=== PATIENT | male | born 1970 | race Caucasian/White ===

== ENCOUNTER 2020-05-08 09:51 | Outpatient (CLI) | payer MEDICARE, SELFPAY ==
--- NOTE | 2020-05-08 09:56 | CT_ITS ---
WS: [id number] Examination: CT of the chest abdomen and pelvis Rectal carcinoma restaging Technique Omnipaque 300 95 mL. FINDINGS: The thyroid gland was normal bilaterally. No supraclavicular lymphadenopathy or axillary ly mphadenopathy is seen. Left side again shows a 4 mm lingula lesion this is not changed since earlier exams. The calcified azygos node is again seen. The aorta was normal. The heart chambers show no abnormalities. Perfusion changes in both lung zee were normal. There was no evidence of mediastinal masses or lymphadenopathy. CT of the abdomen pelvis show normal appearance of the liver. No infiltrating changes. The gallbladder is normal. The spleen was normal as well as the pancreas head, body, tail the stomach showed no abnormalities. Both adrenal glands were normal. Both kidneys show normal size there is slight irregularity of the borders but no definite masses were seen. The ureters were also found to be normal. The large bowel showed fecal stasis. The aorta inferior vena cava were normal The small bowel showed no unusual configuration. The descending colon was normal. There is evidence of isolated diverticulosis in the sigmoid colon. The rectum shows no recurrent tumors. The prostate was of normal size and The hip joints appear to be normal bilaterally in the pelvis was normal. The lumbar spine showed no gross metastatic or destructive changes. CT/CT chest abd pel w con* Impression: The chest shows no evidence of progression of disease or metastatic changes. The abdomen pelvis show no progression of disease and no evidence of recurrent neoplasm is seen.
[2020-05-08 10:15] LABS: Basophils # 0.1 10^3/uL (0.0-0.1); Basophils % 0.9 %; Eosinophils # 0.3 10^3/uL (0.0-0.8); Eosinophils % 3.2 %; Hematocrit 44.5 % (42.0-52.0); Hemoglobin 14.9 g/dL (11.7-16.6); Lymphocytes # 1.7 10^3/uL (0.8-4.8); Lymphocytes % 19.7 %; Mean Corpuscular HGB Conc 33.5 g/dL (30.0-36.0); Mean Corpuscular Hemoglobin 29.8 pg (28.0-34.0); Mean Platelet Volume 10.6 fL (7.4-10.4); Monocytes # 0.5 10^3/uL (0.2-0.9); Monocytes % 5.6 %; Neutrophils # 6.1 10^3/uL (1.8-7.7); Neutrophils % 70.3 %; Nucleated Red Blood Cells % 0 %; Platelet Count 172 10^3/cmm (130-400); Red Cell Distribution Width 12.5 % (12.1-15.1); White Blood Count 8.7 10^3/uL (4.0-10.0)
[2020-05-08 10:45] LABS: Carcinoembryonic Antigen 1.4 ng/mL (0.0-4.7)
[2020-05-08 11:05] LABS: Alanine Aminotransferase 19 U/L (0-41); Albumin Level 4.5 g/dL (3.5-5.2); Alkaline Phosphatase 73 IU/L (40-130); Anion Gap 17.1 (5-19); Aspartate Amino Transferase 19 U/L (0-40); Blood Urea Nitrogen 9 mg/dL (6-20); Calcium 9.4 mg/dL (8.5-10.5); Carbon Dioxide 24 mmol/L (22-29); Chloride 103 mmol/L (98-107); Globulin 2.4 g/dL (1.3-4.6); Glomerular Filtration Rate 103.6 mL/min (90-130); Glucose 105 mg/dL (65-115); Osmolality Calculated 286 mOsm/kg (285-295); Potassium 4.1 mmol/L (3.5-5.1); Sodium 140 mmol/L (136-145); Total Bilirubin 0.6 mg/dL (0.15-1.2); Total Protein 6.9 g/dL (6.6-8.7)
[2020-05-08] MEDS: iohexol 300 mg/mL 100 mL Btl IV (11:27)
[2020-05-08] MEDS: iohexol 300 mg/mL 50 mL Btl PO (11:27)
== END 2020-05-08 09:52 | disposition home or self-care (01) ==
LOC: CT 09:52
PROVIDERS: PCP Internal Medicine; Visit Provider Internal Medicine Medical Oncology
DX: C20 Malignant neoplasm of rectum (principal)
CPT/HCPCS: 71260; 74177; 80053; 82378; 85025

== ENCOUNTER 2020-05-12 15:51 | Outpatient (CLI) | payer MEDICARE, SELFPAY ==
[2020-05-12 16:41] LABS: Add Urine Microscopic? NO
[2020-05-12 17:04] LABS: Bilirubin Urine Neg (NEGATIVE); Blood Urine Neg (Negative); Glucose Urine UA Norm (Normal); Ketones Urine Negative (Negative); Leukocyte Esterase Urine Negative (Negative); Nitrate Urine Negative (Negative); Protein Urine Neg (Negative); Urine Appearance Clear (CLEAR); Urine Color Yellow (Yellow); Urobilinogen Urine Neg (Negative); pH Urine 6.5 (5-7)
--- NOTE | 2020-05-16 07:03 | ONC FU_ITS ---
Dr. Bernal Patient Follow-Up Note Patient: Chris Luque Unit #: [id number]: [id number] Dicatated By: Dennis Bernal M.D.Date of Visit:May 12, 2020 Onc Med Follow-up/Prog Note Chief Complaint: Rectal cancer. 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 He had presented with rectal bleeding and pain in his left lower quadrant area. He was referred to Dr. Li, and he underwent colonoscopy on 06/18/2014. He was noted to have a circumferential hard mass which extended from 10 to 15 cm. The appearance was suspicious for malignancy. The only other finding was a 5 mm sessile polyp in the sigmoid colon, which was removed endoscopically. Biopsy of the rectal mass did show infiltrating adenocarcinoma. The polyp showed benign colonic mucosa with a slight focus of adenomatous change. CT abdomen/pelvis showed a circumferential irregular mural wall thickening in the superior rectum measuring up to 9 mm and extending for a length of 6.7 cm. There was some questionable perirectal fat stranding. Also noted in the surrounding area were multiple soft tissue attenuation nodules measuring less than 5 mm. There were no enlarged lymph nodes in that area and there was no inguinal, retroperitoneal, or mesenteric adenopathy or other evidence of metastatic disease. His CEA was normal at 1.8 ng/mL. He was referred to Dr. Mahoney in [place]. He had further staging with MRI of the pelvis on 07/03/14. That study confirmed the presence of a rectosigmoid mass which was involving and approximately 7 cm continuous segment. There was evidence of subtle tumor extension beyond the serosa of the rectum into the mesorectal fat. Also noted were numerous small mesorectal fat lymph nodes which were felt to be likely metastatic. There were no enlarged iliac chain lymph nodes and there were just shotty bilateral inguinal lymph nodes. Based on the recommendation from Dr. Mahoney, patient was treated with neoadjuvant chemoradiation. Radiation was initiated on 07/24/14 and was given concurrently with Xeloda for chemosensitization. Treatment was completed on 08/30/14 to a total dose of 5040 cGy. Overall, he tolerated the treatment well. On 10/15/14 he underwent surgery in [place]. The procedure included robotic-assisted low anterior resection with loop ileostomy. He had pathologically confirmed T3, N0 disease with no involvement in 29 lymph nodes. Final staging was IIA (ypT3, ypN0, M0). He was given postoperative adjuvant chemotherapy with Xeloda. As of March 2015 he had completed 6 cycles of treatment. He required a dose reduction with cycles 5 and 6 for hand/foot syndrome. He otherwise tolerated the treatment well. He subsequently underwent bowel reanastomosis and closure of the ostomy. He has remained on observation following completion of the chemotherapy and surgery. Thus far during follow-up there has been no evidence of recurrence of the cancer. His other medical illnesses include hypertension, hyperlipidemia, and type 2 diabetes. He has associated peripheral neuropathy. He has additional history of GERD/peptic ulcer disease and he also has a history of Scheuermann's disease. INTERIM HISTORY: His surveillance colonoscopy in May 2016 showed just 1 small polyp in the transverse colon which was removed endoscopically. Surveillance CT scans of the chest, abdomen, and pelvis on 02/23/2018 showed no evidence of recurrent or metastatic disease. His CT scans of the chest, abdomen, and pelvis on 02/19/2019 showed stable appearance of a 4 mm nodule in the lingula. There was also unchanged mild splenomegaly and unchanged soft tissue attenuation about the lower rectum and presacral soft tissues. There was no evidence of disease progression in the chest, abdomen, and pelvis. He continued observation/expectant management. Surveillance CT scans on 05/08/2020 showed no evidence of recurrent or metastatic neoplasm in the chest, abdomen, or pelvis. He is seen for a scheduled visit. He says his energy is not really good, but it also has not changed significantly. He is doing light work. His ECOG score is 1. He has good appetite. He has no fever or night sweats. He has some sinus drainage and associated cough. He does not complain of shortness of breath. He has occasional episodes of chest pain. He says it feels like an elephant on his chest, but he thinks it is just associated with anxiety. He also complains of having intestinal gas. He has ongoing problems with his bowel function, mainly frequent and urgent stools. He had one recent episode with urinary urgency and incontinence. He has chronic pain associated with neuropathy. It is adequately managed with medication. He does have some associated numbness in his feet. Medications: Alyssia Allergy 1 Tablet (of 180 mg) Oral daily, ALPRAZolam 1 (0.5 mg) Tablet Oral PRN, buPROPion HCl ER (SR) 1 Tablet (of 150 mg) Tablet SR 12 HR Oral daily, Gabapentin 1 (300 mg) Capsule Oral t.i.d., Hydrocodone-Acetaminophen 1 - 2 Tablet (of 10-325 mg) Tablet Oral q 4 to 6 hours PRN, Lisinopril 1 (10 mg) Tablet Oral daily, Loperamide A-D Tablet Oral PRN, MetFORMIN HCl 1 (1000 mg) Tablet Oral b.i.d., Metoprolol Tartrate 1 (50 mg) Tablet Oral daily, Simvastatin 1 (10 mg) Tablet Oral daily, TiZANidine HCl 1 (2 mg) Tablet Oral t.i.d. PRN, Toujeo SoloStar 40 Units (of 300 Units - mg/mL) Subcutaneous daily, Trulicity 1.5 mg Subcutaneous q 7 days Allergies: No Known Allergies. Review of Systems: Constitutional - He feels okay, but his energy is low. He can do some light work. His appetite is good and weight is down about 5 pounds from last visit. No fever, night sweats, or hot flashes. ECOG score is 1, ENMT - He has seasonal allergies. No mouth sores. No sore throat or difficulty swallowing, Hematologic/Lymphatic - No abnormal bruising or bleeding, Respiratory - No shortness of breath. He has a slight cough related to post nasal drainage. No pleuritic pain or hemoptysis, Cardiovascular - He occasionally has chest pain, but he feels it is anxiety driven. No palpitations, Gastrointestinal - No nausea or vomiting. He has acid reflux. He has frequent lose stools. No constipation. No blood in the stool or black stools, Genitourinary (M) - No dysuria or hematuria. No urinary frequency. He had one recent episode of urgency with incontinence, Musculoskeletal - His pain is adequately managed with hydrocodone 10-325mg, Integumentary - No skin complications, Neurologic - No headache or dizziness. His neuropathy pain is unchanged. No other focal neurologic symptoms, Psychiatric - He has anxiety and some depression. No insomnia. Vital Signs: Performed on May 12, 2020 15:38 Height - 74.00 in Weight - 241.8 lbs (LOW) BSA - 2.36 sq.m BMI - 31.05 (HIGH) Temperature - 99.2 F (HIGH) Pulse - 104 /min (HIGH) Respiration - 24 /min BP - 125/83 mm(hg) O2 Sat - 98 % Pain - 0 Physical Examination: Constitutional - He looks pretty good generally, Eyes - Sclerae nonicteric. Conjunctivae clear, ENMT - No lesions noted in the oral cavity, Hematologic/Lymphatic - No cervical, clavicular, or axillary adenopathy, Respiratory - Lungs are clear with good air movement bilaterally, Cardiovascular - Heart rhythm is regular. He has a mild tachycardia. There is no murmur, gallop, or rub noted, Abdomen - Soft. Liver and spleen are not enlarged. There is no abdominal mass or ascites noted and there is no inguinal adenopathy, Extremities - No edema, Neurologic - No focal neurologic deficits noted. Lab/Imaging: CBC shows hemoglobin 14.9 g, white blood cell count 8700, and platelet count 172,000. Comprehensive metabolic profile is unremarkable. CEA is stable at 1.4 ng/mL. Impression: 1. Patient with adenocarcinoma of the rectum, initially diagnosed in May 2014. His disease was at least stage IIA by clinical evaluation (T3, Nx, M0). Based on MRI findings, it was felt to be more likely stage III. 2. He underwent neoadjuvant chemoradiation, which he completed in August 2014 to a total radiation dose of 5040 cGy. 3. He underwent surgical resection on 10/15/14. His disease post treatment was stage IIA (ypT3, ypN0, M0). 4. He was then given postoperative adjuvant chemotherapy with Xeloda. As of March 2015 he had completed 6 cycles of treatment. He required a 25% dose reduction with cycles 5 and 6 due to worsening hand/foot syndrome. He tolerated treatment pretty well otherwise. 5. He has since then been follolwed on observation/expectant management. He was able to undergo bowel reanastomosis and closure of the ostomy. His other medical illnesses include: 6. Hypertension. 7. Hyperlipidemia. 8. Type II diabetes with peripheral neuropathy. 9. GERD/peptic ulcer disease. 10. Scheuermann's disease. He has had chronic pain following completion of his treatment for the rectal cancer. It appears to be combination of musculoskeletal pain and neuropathy. It has been managed adequately with medication. He has had ongoing problems with bowel function, which continues to show very gradual improvement. Overall, he has been doing pretty well clinically with no evidence of recurrence of the rectal cancer. Plan: He remains on observation/expectant management for the rectal cancer. I will check urinalysis for evaluation of his symptoms. I will just see him again in 1 year. Signed By: Dennis Bernal M.D. <<Signature on File>>
== END 2020-05-12 15:52 | disposition home or self-care (01) ==
LOC: ONCMED 15:55
PROVIDERS: PCP Internal Medicine; Visit Provider Internal Medicine Medical Oncology
DX: Z08 Encounter for follow-up examination after completed treatment for malignant neoplasm (principal); Z85.048 Personal history of other malignant neoplasm of rectum, rectosigmoid junction, and anus; N39.41 Urge incontinence; Z92.21 Personal history of antineoplastic chemotherapy; Z92.3 Personal history of irradiation; I10 Essential (primary) hypertension; E78.5 Hyperlipidemia, unspecified; E11.42 Type 2 diabetes mellitus with diabetic polyneuropathy; K21.9 Gastro-esophageal reflux disease without esophagitis; K27.9 Peptic ulcer, site unspecified, unspecified as acute or chronic, without hemorrhage or perforation; M42.00 Juvenile osteochondrosis of spine, site unspecified
CPT/HCPCS: 81003; G0463

== ENCOUNTER → 2021-04-01 09:35 | Outpatient (BNVA) | payer MEDICARE, SELFPAY | PROVIDERS: PCP Internal Medicine; Visit Provider Podiatrist Foot & Ankle Surgery | DX: E11.621 Type 2 diabetes mellitus with foot ulcer (principal); L97.522 Non-pressure chronic ulcer of other part of left foot with fat layer exposed; E11.42 Type 2 diabetes mellitus with diabetic polyneuropathy; Z79.4 Long term (current) use of insulin; M20.21 Hallux rigidus, right foot; M20.22 Hallux rigidus, left foot; M24.572 Contracture, left ankle | CPT/HCPCS: 73630 ==

== ENCOUNTER 2021-04-06 15:36 | Emergency (ER) | payer MEDICARE, SELFPAY ==
[2021-04-06 15:38] VITALS: BP 149/83; PULSE 123; RESP 18; TEMP 37.1; O2SAT 99; BMI 30.8
--- NOTE | 2021-04-06 15:44 | US_ITS ---
WS: [id number] SCROTAL ULTRASOUND EXAMINATION CLINICAL INFORMATION: pain swelling COMPARISON: None. FINDINGS: TESTES Heterogeneous echogenicity right testicle. Normal vascularity right testicle. Small left hydrocele. N ormal echogenicity left testicle. Right testes size: 3.9 cm x 2.1 cm x 2.0 cm. Left testes size: 5.3 cm x 3.3 cm x 2.7 cm. EPIDIDYMIDES Enlarged LEFT epididymis with increased vascularity edema consistent with epididymitis. Normal right epididymis HYDROCELE Small left VARICOCELE None. OTHER FINDINGS None. US/US scrotum [id number] IMPRESSION: 1. Evidence of acute LEFT epididymitis. No evidence of left-sided orchitis. 2. Small LEFT hydrocele. 3. Diffuse heterogeneous striated echotexture RIGHT testicle with relatively n ormal vascularity. This is nonspecific but can be seen with benign interstitial fibrosis and prior sequelae of orchitis. However, infiltrating neoplasm and ly mphoma not entirely excluded. Recommend testicular ultrasound follow-up after e pididymitis treatment
--- NOTE | 2021-04-06 16:06 | ED_ITS ---
HPI - Male Genitourinary General: Chief complaint: Urogenital-Male Stated complaint: hematuria x 3 days Time Seen by Provider: 04/06/21 15:44 History of Present Illness: HPI Narrative: 50-year-old male presents emergency room with complaint of left-sided flank and back pain radiating into the groin. Pain goes down to the testicle and is noted some testicular swelling. He has had some dysuria and slight urgency. Patient is a known diabetic. He has intermittently had some hematuria as well. MD Complaint: testicle pain and testicle swelling Onset (ago): minute(s) Duration: constant Location: left testicle Radiation: left testicle Quality: aching and dull Exacerbating factors: urination and palpation Associated symptoms: Reports dysuria, hematuria and swelling; Deny discharge, fevers/chills, nausea, rash, urinary incontinence, urinary retention, mass or vomiting Review of Systems Const: Denies: fever(s), chills, body aches, change in appetite, fatigue or malaise ENMT: Denies: throat pain, ear or mastoid pain, nasal discharge or nasal congestion Card: Denies: chest pain, edema, dyspnea on exertion or orthopnea Resp: Denies: dyspnea, productive cough or non-productive cough GI: Denies: nausea or vomiting : Reports: dysuria and hematuria; Denies: urinary incontinence Skin/Breast: Denies: rash or pruritus PFSH ED PFSH: Medical History High cholesterol History of colon cancer Hypertension Type 2 diabetes mellitus with diabetic polyneuropathy Surgical History History of colon resection Family History Other Diabetes Physical Exam Const: COMMON NORMALS: no acute distress GENERAL APPEARANCE: cooperative and comfortable ORIENTATION/CONSCIOUSNESS: Yes awake, Yes oriented to person, Yes oriented to place and Yes oriented to time HENMT: COMMON NORMALS: normocephalic, atraumatic and hearing grossly normal bilaterally HEAD & SCALP: normocephalic and atraumatic Neck/C-Spine: COMMON NORMALS: no JVD Resp: COMMON NORMALS: normal respiratory effort, No retractions, No use of accessory muscles and clear to auscultation bilaterally AUSCULTATION: clear to auscultation bilaterally Cardio: COMMON NORMALS: no JVD, regular rate, regular rhythm and No murmurs present (Cardio) RATE: regular rate RHYTHM: regular rhythm GI: COMMON NORMALS: Soft to palpation and No hepatosplenomegaly present AUSCULTATION: Yes normoactive bowel sounds PALPATION: Yes Soft to palpation, No Tenderness to palpation present (GI), No Guarding due to palpation present (GI) and Yes No hepatosplenomegaly present : OTHER: Significant swelling of the left testicle. Exquisitely tender to the touch mild swelling on the right testicle. No inguinal hernia. No sign of abscess in the scrotum on physical exam. Extremity: COMMON NORMALS: normal to inspection, capillary refill normal, no clubbing, cyanosis or edema, no calf tenderness and no pedal edema Neuro: SENSORIUM/ORIENTATION: Yes oriented to person, Yes oriented to place and Yes oriented to time Skin: COMMON NORMALS: no rashes or lesions noted GENERAL SKIN EXAM: no rashes or lesions noted Course Vital Signs: Vital signs: Vital Signs Temperature 98.7 F 04/06/21 15:38 Pulse Rate 101 H 04/06/21 18:24 Respiratory Rate 18 04/06/21 18:24 Blood Pressure 137/88 04/06/21 18:24 Pulse Oximetry 98 04/06/21 18:24 MDM - Male MDM Narrative: Medical decision making narrative: Ultrasound shows epididymitis. I did discuss with the patient radiologist recommended a follow- up ultrasound in a few weeks. We will start him on some antibiotics ice anti- inflammatories if worsens or changes return Lab Data: Labs: Lab Results 04/06/21 04/06/21 04/06/21 Range/Units 16:16 17:00 17:00 WBC 12.1 H (4.0-10.0) 10^3/ uL RBC 4.92 (4.1-5.3) 10^6/u L Hgb 14.7 (11.7-16.6) g/dL Hct 44.5 (42.0-52.0) % MCV 90.4 (80-94) fL MCH 29.9 (28.0-34.0) pg MCHC 33.0 (30.0-36.0) g/dL RDW 12.7 (12.1-15.1) % Plt Count 178 (130-400) 10^3/c mm MPV 11.1 H (7.4-10.4) fL Neut % (Auto) 77.4 % Lymph % (Auto) 13.9 % Coffey % (Auto) 6.3 % Eos % (Auto) 1.8 % Baso % (Auto) 0.3 % Neut # (Auto) 9.32 H (1.8-7.7) 10^3/u L Lymph # (Auto) 1.7 (0.8-4.8) 10^3/u L Coffey # (Auto) 0.8 (0.2-0.9) 10^3/u L Eos # (Auto) 0.2 (0.0-0.8) 10^3/u L Baso # (Auto) 0.0 (0.0-0.1) 10^3/u L Nucleated RBC % (a uto) 0 % Nucleated RBCs # 0.0 /100WBC Sodium 140 (136-145) mmol/L Potassium 4.5 (3.5-5.1) mmol/L Chloride 104 (98-107) mmol/L Carbon Dioxide 26 (22-29) mmol/L Anion Gap 14.5 (5-19) BUN 9 (6-20) mg/dL Creatinine 0.8 (0.7-1.2) mg/dL GFR Calculation 103.2 (90-130) mL/min Glucose 131 H (65-115) mg/dL Calculated Osmolal ity 290 (285-295) mOsm/k g Calcium 8.8 (8.5-10.5) mg/dL Urine Color Yellow (Yellow) Urine Appearance Clear (CLEAR) Urine pH 5 (5-7) Ur Specific Gravit y 1.010 (1.005-1.030) Urine Protein Neg (Negative) Urine Glucose (UA) 4+ H (Normal) Urine Ketones Negative (Negative) Urine Blood Neg (Negative) Urine Nitrate Negative (Negative) Urine Bilirubin Neg (Negative) Urine Urobilinogen Norm (Negative) mg/dL Ur Leukocyte Jo ase Negative (Negative) Urine RBC None (0-2) /hpf Urine WBC None (0-5) /hpf Ur Squamous Epith Cells None (0-5) /hpf Amorphous Sediment Not Reportable Urine Bacteria None (NONE) /hpf Discharge Plan Discharge Patient Disposition: Home Clinical Impression: Epididymitis Condition: Stable Prescriptions: New doxycycline monohydrate 100 mg capsule 100 mg PO BID 14 Days Qty: 28 RF: 0 diclofenac sodium 75 mg tablet,delayed release (DR/EC) 75 mg PO Q12H PRN (Reason: pain) Qty: 20 RF: 0 Discontinued ibuprofen 200 mg Tablet 400 mg PO PRN RF: 0 No Action metformin 500 mg tablet extended release 24 hr 500 mg PO BID RF: 0 duloxetine 30 mg capsule,delayed release(DR/EC) 30 mg PO QAM RF: 0 lisinopril 20 mg tablet 20 mg PO QAM RF: 0 hydrocodone-acetaminophen 10-325 mg tablet 1 - 2 tab PO .SIX TIMES A DAY PRN (Reason: Pain) RF: 0 Toujeo SoloStar U-300 Insulin 300 unit/mL (1.5 mL) insulin pen 40 unit SUBCUT BEDTIME RF: 0 gabapentin 300 mg capsule 300 mg PO BEDTIME RF: 0 simvastatin 20 mg tablet 20 mg PO BEDTIME RF: 0 tizanidine 2 mg tablet 2 mg PO TID PRN (Reason: Muscle Spasm) RF: 0 (DME) Diabetic shoes with inserts See Rx Instructions .Route .MEDSUPPLY Qty: 1 RF: 0 multivitamin Tablet 1 tab PO DAILY RF: 0 sulfamethoxazole-trimethoprim 800-160 mg tablet 1 tab PO BID RF: 0 Trulicity 3 mg/0.5 mL pen injector 3 mg SUBCUT Q7D RF: 0 Discharge Orders: Discharge ED (Routine); Ordered 04/06/21 Ordered By: Jose He Referrals: Zofia Zhang DO [Primary Care Provider] - Patient Instructions: Opioid Safety Coding Level of Care Code ED [employer] for Chg Fwd Exam Comprehensive
[2021-04-06 16:36] LABS: Add Urine Microscopic? YES; Bilirubin Urine Neg (Negative); Blood Urine Neg (Negative); Glucose Urine UA 4+ (Normal); Ketones Urine Negative (Negative); Leukocyte Esterase Urine Negative (Negative); Nitrate Urine Negative (Negative); Protein Urine Neg (Negative); Urine Appearance Clear (CLEAR); Urine Color Yellow (Yellow); Urobilinogen Urine Norm (Negative); pH Urine 5 (5-7)
[2021-04-06 17:06] LABS: Basophils % 0.3 %; Eosinophils # 0.2 10^3/uL (0.0-0.8); Eosinophils % 1.8 %; Hematocrit 44.5 % (42.0-52.0); Hemoglobin 14.7 g/dL (11.7-16.6); Lymphocytes # 1.7 10^3/uL (0.8-4.8); Lymphocytes % 13.9 %; Mean Corpuscular Hemoglobin 29.9 pg (28.0-34.0); Mean Corpuscular Volume 90.4 fL (80-94); Mean Platelet Volume 11.1 fL (7.4-10.4); Monocytes # 0.8 10^3/uL (0.2-0.9); Monocytes % 6.3 %; Neutrophils # 9.32 10^3/uL (1.8-7.7); Neutrophils % 77.4 %; Nucleated Red Blood Cells % 0 %; Platelet Count 178 10^3/cmm (130-400); Red Blood Count 4.92 10^6/uL (4.1-5.3); Red Cell Distribution Width 12.7 % (12.1-15.1); White Blood Count 12.1 10^3/uL (4.0-10.0)
[2021-04-06 17:21] LABS: Blood Urea Nitrogen 9 mg/dL (6-20); Calcium 8.8 mg/dL (8.5-10.5); Carbon Dioxide 26 mmol/L (22-29); Chloride 104 mmol/L (98-107); Creatinine Clr Calc Pharmacy 148.3257; Glomerular Filtration Rate 103.2 mL/min (90-130); Glucose 131 mg/dL (65-115); Osmolality Calculated 290 mOsm/kg (285-295); Sodium 140 mmol/L (136-145)
[2021-04-06 17:32] LABS: Anion Gap 14.5 (5-19); Potassium 4.5 mmol/L (3.5-5.1)
[2021-04-06 18:24] VITALS: BP 137/88; PULSE 101; RESP 18; O2SAT 98
== END 2021-04-06 18:25 | disposition home or self-care (01) ==
PROVIDERS: Emergency Provider Family Medicine; PCP Internal Medicine
DX: N45.1 Epididymitis (principal); Z85.038 Personal history of other malignant neoplasm of large intestine; I10 Essential (primary) hypertension; E11.42 Type 2 diabetes mellitus with diabetic polyneuropathy
CPT/HCPCS: 76870; 80048; 81001; 85025; 99283

== ENCOUNTER 2021-04-27 15:14 | Outpatient (CLI) | payer MEDICARE, SELFPAY ==
--- NOTE | 2021-04-27 | US_ITS ---
WS: [id number] TESTICULAR ULTRASOUND HISTORY: LEFT testicular pain COMPARISON: 04/06/2021 TECHNIQUE: Real-time and color Doppler imaging or utilized to perform a testicular ultrasound. Right testicle: 3.8 cm x 2.6 cm x 2.3 cm. Normal sized testicle with mild coarsened echotexture and heterogeneity. No mass or torsion. Normal color Doppler is present throughout. Systolic and diastolic velocities are both present. No significant hydrocele. Right epididymis: Normal epididymis with no increased vascularity. Left testicle: 4.8 cm x 3.2 cm x 3.0 cm. Normal sized testicle. Marked increased vascularity within the testicle. Small surrounding hydrocele. Left epididymis: Enlarged heterogeneous hypervascular epididymis. There is a moderate amount of scrotal wall thickening surrounding the LEFT testicle. US/US scrotum [id number] IMPRESSION: 1. Significant progression of LEFT epididymo-orchitis since 04/06/2021. 2. Diffuse mild LEFT scrotal wall thickening.
== END 2021-04-27 15:15 | disposition home or self-care (01) ==
LOC: RAD 15:19
PROVIDERS: PCP Internal Medicine; Visit Provider Internal Medicine
DX: N50.812 Left testicular pain (principal); N45.3 Epididymo-orchitis
CPT/HCPCS: 76870

== ENCOUNTER 2021-05-13 11:18 | Outpatient (CLI) | payer MEDICARE, SELFPAY ==
[2021-05-13 11:40] LABS: Basophils # 0.1 10^3/uL (0.0-0.1); Basophils % 0.6 %; Eosinophils # 0.3 10^3/uL (0.0-0.8); Eosinophils % 2.4 %; Hematocrit 43.7 % (42.0-52.0); Hemoglobin 14.3 g/dL (11.7-16.6); Lymphocytes # 2.1 10^3/uL (0.8-4.8); Lymphocytes % 20.2 %; Mean Corpuscular HGB Conc 32.7 g/dL (30.0-36.0); Mean Corpuscular Hemoglobin 29.4 pg (28.0-34.0); Mean Corpuscular Volume 89.9 fL (80-94); Mean Platelet Volume 10.8 fL (7.4-10.4); Monocytes # 0.6 10^3/uL (0.2-0.9); Monocytes % 5.9 %; Neutrophils # 7.29 10^3/uL (1.8-7.7); Neutrophils % 70.6 %; Nucleated Red Blood Cells % 0 %; Platelet Count 180 10^3/cmm (130-400); Red Blood Count 4.86 10^6/uL (4.1-5.3); Red Cell Distribution Width 12.5 % (12.1-15.1); White Blood Count 10.3 10^3/uL (4.0-10.0)
[2021-05-13 12:06] LABS: Carcinoembryonic Antigen 1.3 ng/mL (0.0-4.7)
[2021-05-13 12:29] LABS: Alanine Aminotransferase 14 U/L (0-41); Albumin Level 4.4 g/dL (3.5-5.2); Alkaline Phosphatase 73 IU/L (40-130); Anion Gap 13.5 (5-19); Aspartate Amino Transferase 14 U/L (0-40); Blood Urea Nitrogen 8 mg/dL (6-20); Calcium 9.1 mg/dL (8.5-10.5); Carbon Dioxide 27 mmol/L (22-29); Chloride 102 mmol/L (98-107); Glomerular Filtration Rate 103.2 mL/min (90-130); Glucose 85 mg/dL (65-115); Osmolality Calculated 284 mOsm/kg (285-295); Potassium 4.5 mmol/L (3.5-5.1); Sodium 138 mmol/L (136-145); Total Bilirubin 0.8 mg/dL (0.15-1.2); Total Protein 6.4 g/dL (6.6-8.7)
--- NOTE | 2021-05-17 09:43 | ONC FU_ITS ---
Dr. Bernal Patient Follow-Up Note Patient: Chris Luque Unit #: [id number]: 1970 Dicatated By: Dennis Bernal M.D.Date of Visit:May 13, 2021 Onc Med Follow-up/Prog Note Chief Complaint: Rectal cancer. History of Present Illness: This is a 50 year-old man with moderately differentiated adenocarcinoma of the rectum, clinical stage at least IIA, but likely stage III (T3, Nx, M0). He had presented with rectal bleeding and pain in his left lower quadrant area. He was referred to Dr. Li, and he underwent colonoscopy on 06/18/2014. He was noted to have a circumferential hard mass which extended from 10 to 15 cm. The appearance was suspicious for malignancy. The only other finding was a 5 mm sessile polyp in the sigmoid colon, which was removed endoscopically. Biopsy of the rectal mass did show infiltrating adenocarcinoma. The polyp showed benign colonic mucosa with a slight focus of adenomatous change. CT abdomen/pelvis showed a circumferential irregular mural wall thickening in the superior rectum measuring up to 9 mm and extending for a length of 6.7 cm. There was some questionable perirectal fat stranding. Also noted in the surrounding area were multiple soft tissue attenuation nodules measuring less than 5 mm. There were no enlarged lymph nodes in that area and there was no inguinal, retroperitoneal, or mesenteric adenopathy or other evidence of metastatic disease. His CEA was normal at 1.8 ng/mL. He was referred to Dr. Mahoney in [place]. He had further staging with MRI of the pelvis on 07/03/14. That study confirmed the presence of a rectosigmoid mass which was involving and approximately 7 cm continuous segment. There was evidence of subtle tumor extension beyond the serosa of the rectum into the mesorectal fat. Also noted were numerous small mesorectal fat lymph nodes which were felt to be likely metastatic. There were no enlarged iliac chain lymph nodes and there were just shotty bilateral inguinal lymph nodes. Based on the recommendation from Dr. Mahoney, patient was treated with neoadjuvant chemoradiation. Radiation was initiated on 07/24/14 and was given concurrently with Xeloda for chemosensitization. Treatment was completed on 08/30/14 to a total dose of 5040 cGy. Overall, he tolerated the treatment well. On 10/15/14 he underwent surgery in [place]. The procedure included robotic-assisted low anterior resection with loop ileostomy. He had pathologically confirmed T3, N0 disease with no involvement in 29 lymph nodes. Final staging was IIA (ypT3, ypN0, M0). He was given postoperative adjuvant chemotherapy with Xeloda. As of March 2015 he had completed 6 cycles of treatment. He required a dose reduction with cycles 5 and 6 for hand/foot syndrome. He otherwise tolerated the treatment well. He subsequently underwent bowel reanastomosis and closure of the ostomy. He has remained on observation following completion of the chemotherapy and surgery. His surveillance colonoscopy in May 2016 showed just 1 small polyp in the transverse colon which was removed endoscopically. Surveillance CT scans of the chest, abdomen, and pelvis on 02/23/2018 showed no evidence of recurrent or metastatic disease. His CT scans of the chest, abdomen, and pelvis on 02/19/2019 showed stable appearance of a 4 mm nodule in the lingula. There was also unchanged mild splenomegaly and unchanged soft tissue attenuation about the lower rectum and presacral soft tissues. There was no evidence of disease progression in the chest, abdomen, and pelvis. He continued observation/expectant management. His other medical illnesses include hypertension, hyperlipidemia, and type 2 diabetes. He has associated peripheral neuropathy. He has additional history of GERD/peptic ulcer disease and he also has a history of Scheuermann's disease. INTERIM HISTORY: Surveillance CT scans on 05/08/2020 showed no evidence of recurrent or metastatic neoplasm in the chest, abdomen, or pelvis. At that point he was 5 years out from completion of treatment and further routine surveillance imaging was not recommended. He is seen for a scheduled visit. In March he has been seen in the emergency room with pain and swelling in the left testicle. His ultrasound was consistent with acute epididymitis. His symptoms had initially worsened despite antibiotic therapy. He has just recently completed his course of treatment. He has also been seeing the vision mixer for treatment of a diabetic skin ulceration on the left great toe. He says his energy is not good, but he is doing some work. ECOG score is 1. His appetite has been good. He had 1 recent episode of fever and sweating. He has sinus drainage and cough. His breathing, though, has been okay. He does not complain of chest pain. He has ongoing problems with his bowel function, but it continues to slowly improve. Bladder function has been okay, and thus far has had no recurrence of the left testicle pain or swelling. He has fairly generalized joint pain and he also has significant neuropathy in his hands and feet. He has had ongoing problems with anxiety and depression. Medications: Alyssia Allergy 1 Tablet (of 180 mg) Oral daily, ALPRAZolam 1 (0.5 mg) Tablet Oral PRN, buPROPion HCl ER (SR) 1 Tablet (of 150 mg) Tablet SR 12 HR Oral daily, Gabapentin 1 (300 mg) Capsule Oral t.i.d., Hydrocodone-Acetaminophen 1 - 2 Tablet (of 10-325 mg) Tablet Oral q 4 to 6 hours PRN, Lisinopril 1 (10 mg) Tablet Oral daily, Loperamide A-D Tablet Oral PRN, MetFORMIN HCl 1 (1000 mg) Tablet Oral b.i.d., Metoprolol Tartrate 1 (50 mg) Tablet Oral daily, Simvastatin 1 (10 mg) Tablet Oral daily, TiZANidine HCl 1 (2 mg) Tablet Oral t.i.d. PRN, Toujeo SoloStar 40 Units (of 300 Units - mg/mL) Subcutaneous daily, Trulicity 3 mg Subcutaneous q 7 days Allergies: No Known Allergies. Vital Signs: Performed on May 13, 2021 16:32 Height - 74.00 in Weight - 230.8 lbs (LOW) BSA - 2.31 sq.m BMI - 29.63 Temperature - 98.1 F (LOW) Pulse - 114 /min (HIGH) Respiration - 18 /min BP - 123/77 mm(hg) O2 Sat - 96 % Pain - 0 Fatigue - 7 Physical Examination: Constitutional - He looks pretty good generally, Eyes - Sclerae nonicteric. Conjunctivae clear, ENMT - No lesions noted in the oral cavity, Hematologic/Lymphatic - No cervical, clavicular, or axillary adenopathy, Respiratory - Lungs are clear with good air movement bilaterally, Cardiovascular - Heart rhythm is regular. There is no murmur, gallop, or rub noted, Abdomen - Soft. Liver and spleen are not enlarged. There is no abdominal mass or ascites noted and there is no inguinal adenopathy, Extremities - No edema, Neurologic - No focal neurologic deficits noted. Lab/Imaging: Test performed on May 13, 2021 11:27 Sodium 138 mmol/L Potassium 4.5 mmol/L Chloride 102 mmol/L CO2 27 mmol/L Anion Gap 13.5 BUN 8 mg/dL Creatinine 0.8 mg/dL Cr Clearance (Est) 167.21 mL/min eGFR 103.2 mL/min Glucose 85 mg/dL Osmolality - Calculated 284 mOsm/kg Calcium 9.1 mg/dL Protein, Total 6.4 g/dL Albumin 4.4 g/dL Globulin 2.0 g/dL Bilirubin, Total 0.8 mg/dL ALT (SGPT) 14 U/L AST (SGOT) 14 U/L Alkaline Phosphatase 73 IU/L WBC 10.3 10 3/uL RBC 4.86 10 6/uL HGB 14.3 g/dL HCT 43.7 % MCV 89.9 fL MCH 29.4 pg MCHC 32.7 g/dL RDW 12.5 % Platelet Count 180 10 3/cmm MPV 10.8 fL Neutrophils 7.29 10 3/uL Lymphocytes 2.1 10 3/uL Monocytes 0.6 10 3/uL Eosinophils 0.3 10 3/uL Basophils 0.1 10 3/uL Neutrophil % 70.6 % Lymphocyte % 20.2 % Monocyte % 5.9 % Eosinophil % 2.4 % Basophils % 0.6 % NRBC % 0 % CEA 1.3 ng/mL Problem List: 1. Moderately differentiated adenocarcinoma of the rectum, initially diagnosed in May 2014. His disease was at least stage IIA by clinical evaluation (T3, Nx, M0). Based on MRI findings, it was felt to be more likely stage III. 2. Hypertension. 3. Hyperlipidemia. 4. Type II diabetes with peripheral neuropathy. 5. GERD/peptic ulcer disease. 6. Scheuermann's disease. Problems Addressed with this Encounter and Plan: 1. Patient with moderately differentiated adenocarcinoma of the rectum, initially diagnosed in May 2014. His disease was at least stage IIA by clinical evaluation (T3, Nx, M0). Based on MRI findings, it was felt to be more likely stage III. He underwent neoadjuvant chemoradiation, which he completed in August 2014 to a total radiation dose of 5040 cGy. He underwent surgical resection on 10/15/14. His disease post treatment was stage IIA (ypT3, ypN0, M0). He was then given postoperative adjuvant chemotherapy with Xeloda. As of March 2015 he had completed 6 cycles of treatment. He required a 25% dose reduction with cycles 5 and 6 due to worsening hand/foot syndrome. He tolerated treatment pretty well otherwise. He has was then followed on expectant management. He was able to undergo bowel reanastomosis and closure of the ostomy. He has since then had ongoing problems with his bowel function, but it has continued to gradually improve. During his follow-up he has had chronic pain and he has had limited activity tolerance, but thus far there has been no evidence of recurrence of the rectal cancer. He remains on observation/expectant management. I will see him again in 1 year. 2. He has had chronic pain following completion of his treatment for the rectal cancer. It appears to be combination of musculoskeletal pain and neuropathy. It has been managed adequately with medication. Signed By: Dennis Bernal M.D. <<Signature on File>>
== END 2021-05-13 11:19 | disposition home or self-care (01) ==
LOC: ONCMED 11:22
PROVIDERS: PCP Internal Medicine; Visit Provider Internal Medicine Medical Oncology
DX: Z08 Encounter for follow-up examination after completed treatment for malignant neoplasm (principal); Z85.048 Personal history of other malignant neoplasm of rectum, rectosigmoid junction, and anus; I10 Essential (primary) hypertension; E78.5 Hyperlipidemia, unspecified; E11.42 Type 2 diabetes mellitus with diabetic polyneuropathy; K21.9 Gastro-esophageal reflux disease without esophagitis; M42.00 Juvenile osteochondrosis of spine, site unspecified; G62.0 Drug-induced polyneuropathy; T45.1X5A Adverse effect of antineoplastic and immunosuppressive drugs, initial encounter; Z79.899 Other long term (current) drug therapy
CPT/HCPCS: 80053; 82378; 85025; 99214

== ENCOUNTER → 2021-05-20 08:57 | Outpatient (BNVA) | payer MEDICARE, SELFPAY | PROVIDERS: PCP Internal Medicine; Referring Provider Internal Medicine; Visit Provider Urology | DX: N45.1 Epididymitis (principal); N20.9 Urinary calculus, unspecified; N52.1 Erectile dysfunction due to diseases classified elsewhere | CPT/HCPCS: 81003 ==

== ENCOUNTER 2021-07-21 13:01 | Outpatient (CLI) | payer MEDICARE, SELFPAY ==
--- NOTE | 2021-07-21 13:30 | XRR_ITS ---
PROCEDURE INFORMATION: Exam: XR Abdomen Exam date and time: 07/21/2021 1:30 PM Age: 50 years old Clinical indication: Condition or disease; Other: Urolithiasis TECHNIQUE: Imaging protocol: XR of the abdomen. Views: Frontal supine view of the abdomen. 1 View. COMPARISON: CT chest abd pel w con* 05/08/2020 11:19 AM FINDINGS: Gastrointestinal tract: Normal. No bowel dilation. Bones/joints: Unremarkable. Other findings: Seminal vesical calcifications. XR/XR KUB [id number] IMPRESSION: Negative for urinary calculus.
== END 2021-07-21 13:02 | disposition home or self-care (01) ==
LOC: RAD 13:07
PROVIDERS: PCP Internal Medicine; Visit Provider Urology
DX: N20.9 Urinary calculus, unspecified (principal)
CPT/HCPCS: 74018; 81003

== ENCOUNTER → 2022-03-23 13:33 | Outpatient (BNVA) | payer MEDICARE, SELFPAY | PROVIDERS: PCP Internal Medicine; Visit Provider Podiatrist Foot & Ankle Surgery | DX: E11.42 Type 2 diabetes mellitus with diabetic polyneuropathy (principal); Z79.4 Long term (current) use of insulin; M20.21 Hallux rigidus, right foot; M20.22 Hallux rigidus, left foot; M24.572 Contracture, left ankle; F17.210 Nicotine dependence, cigarettes, uncomplicated | CPT/HCPCS: 99213; 99214 ==

== ENCOUNTER 2022-06-28 12:55 | Oncology outpatient (recurring) (ONCR) | payer MEDICARE, SELFPAY ==
[2022-06-28 13:15] LABS: Basophils # 0.1 10^3/uL (0.0-0.1); Basophils % 0.6 %; Eosinophils # 0.3 10^3/uL (0.0-0.8); Eosinophils % 3.3 %; Hematocrit 48.5 % (42.0-52.0); Hemoglobin 16.2 g/dL (11.7-16.6); Lymphocytes # 2.4 10^3/uL (0.8-4.8); Lymphocytes % 25.5 %; Mean Corpuscular HGB Conc 33.4 g/dL (30.0-36.0); Mean Corpuscular Volume 89.8 fl (80-94); Mean Platelet Volume 10.8 fL (7.4-10.4); Monocytes # 0.6 10^3/uL (0.2-0.9); Monocytes % 6.3 %; Neutrophils # 6.05 10^3/uL (1.8-7.7); Neutrophils % 64.1 %; Nucleated Red Blood Cells % 0 %; Platelet Count 171 10^3/cmm (130-400); Red Cell Distribution Width 12.5 % (12.1-15.1); White Blood Count 9.4 10^3/uL (4.0-10.0)
[2022-06-28 13:54] LABS: Carcinoembryonic Antigen 1.6 ng/mL (0.0-4.7)
[2022-06-28 14:05] LABS: Alanine Aminotransferase 15 U/L (0-41); Albumin Level 4.3 g/dL (3.5-5.2); Alkaline Phosphatase 81 IU/L (40-130); Anion Gap 16.1 (5-19); Aspartate Amino Transferase 14 U/L (0-40); Blood Urea Nitrogen 8 mg/dL (6-20); Calcium 9.3 mg/dL (8.5-10.5); Carbon Dioxide 26 mmol/L (22-29); Chloride 103 mmol/L (98-107); Globulin 2.3 g/dL (1.3-4.6); Glomerular Filtration Rate 119.9 mL/min (90-130); Glucose 83 mg/dL (65-115); Osmolality Calculated 289 mOsm/kg (285-295); Potassium 4.1 mmol/L (3.5-5.1); Sodium 141 mmol/L (136-145); Total Bilirubin 1.1 mg/dL (0.15-1.2); Total Protein 6.6 g/dL (6.6-8.7)
[2022-06-28 15:28] LABS: Estmated Average Glucose 154
== END 2022-07-21 23:59 | disposition home or self-care (01) ==
PROVIDERS: PCP Internal Medicine; Visit Provider Internal Medicine Medical Oncology
DX: F17.210 Nicotine dependence, cigarettes, uncomplicated; Z92.3 Personal history of irradiation; Z92.21 Personal history of antineoplastic chemotherapy; Z08 Encounter for follow-up examination after completed treatment for malignant neoplasm; Z85.048 Personal history of other malignant neoplasm of rectum, rectosigmoid junction, and anus; M19.90 Unspecified osteoarthritis, unspecified site; G62.9 Polyneuropathy, unspecified; G89.29 Other chronic pain
CPT/HCPCS: 36415; 80053; 82378; 83036; 85025; 99214; G0463

== ENCOUNTER → 2022-07-12 14:01 | Outpatient (BNVA) | payer MEDICARE, SELFPAY | PROVIDERS: PCP Internal Medicine; Visit Provider Podiatrist Foot & Ankle Surgery | DX: E11.42 Type 2 diabetes mellitus with diabetic polyneuropathy (principal); M20.21 Hallux rigidus, right foot; M20.22 Hallux rigidus, left foot; M24.572 Contracture, left ankle; Z79.4 Long term (current) use of insulin; Z79.84 Long term (current) use of oral hypoglycemic drugs | CPT/HCPCS: 99213; 99214 ==

== ENCOUNTER 2023-01-03 11:23 | Oncology outpatient (recurring) (ONCR) | payer MEDICARE, SELFPAY ==
[2023-01-03 13:14] LABS: Basophils # 0.1 10^3/uL (0.0-0.1); Basophils % 0.8 %; Eosinophils # 0.3 10^3/uL (0.0-0.8); Eosinophils % 4.2 %; Hematocrit 50.9 % (42.0-52.0); Hemoglobin 16.8 g/dL (11.7-16.6); Lymphocytes # 2.2 10^3/uL (0.8-4.8); Lymphocytes % 28.4 %; Mean Corpuscular Hemoglobin 29.7 pg (28.0-34.0); Mean Corpuscular Volume 89.9 fl (80-94); Mean Platelet Volume 11.8 fL (7.4-10.4); Monocytes # 0.6 10^3/uL (0.2-0.9); Monocytes % 7.4 %; Neutrophils # 4.52 10^3/uL (1.8-7.7); Neutrophils % 58.9 %; Nucleated Red Blood Cells % 0 %; Platelet Count 172 10^3/cmm (130-400); Red Blood Count 5.66 10^6/uL (4.1-5.3); Red Cell Distribution Width 12.3 % (12.1-15.1); White Blood Count 7.7 10^3/uL (4.0-10.0)
[2023-01-03 13:40] LABS: Carcinoembryonic Antigen 2.2 ng/mL (0.0-4.7)
[2023-01-03 13:49] LABS: Slide Review Slide Review Perform
[2023-01-03 13:51] LABS: Alanine Aminotransferase 18 U/L (0-41); Albumin Level 4.6 g/dL (3.5-5.2); Alkaline Phosphatase 121 U/L (40-130); Anion Gap 17.7 (5-19); Aspartate Amino Transferase 15 U/L (0-40); Blood Urea Nitrogen 12 mg/dL (6-20); Calcium 9.9 mg/dL (8.5-10.5); Carbon Dioxide 26 mmol/L (22-29); Chloride 98 mmol/L (98-107); Globulin 2.3 g/dL (1.3-4.6); Glomerular Filtration Rate 119.4 mL/min (90-130); Glucose 227 mg/dL (65-115); Osmolality Calculated 291 mOsm/kg (285-295); Potassium 4.7 mmol/L (3.5-5.1); Sodium 137 mmol/L (136-145); Total Bilirubin 0.6 mg/dL (0.15-1.2); Total Protein 6.9 g/dL (6.6-8.7)
[2023-01-03 14:09] LABS: Estmated Average Glucose 206; Hemoglobin A1C 8.8 % (4.0-6.0)
[2023-01-03 14:59] LABS: Thyroid Stimulating Hormone 0.98 uIU/mL (0.27-4.20)
== END 2023-01-18 23:59 | disposition home or self-care (01) ==
PROVIDERS: Nurse Practitioner; PCP Family Medicine; Visit Provider Internal Medicine Medical Oncology
DX: Z08 Encounter for follow-up examination after completed treatment for malignant neoplasm (principal); F17.210 Nicotine dependence, cigarettes, uncomplicated; Z92.3 Personal history of irradiation; Z92.21 Personal history of antineoplastic chemotherapy; Z85.048 Personal history of other malignant neoplasm of rectum, rectosigmoid junction, and anus; M25.59 Pain in other specified joint; E11.42 Type 2 diabetes mellitus with diabetic polyneuropathy; G89.29 Other chronic pain; Z79.891 Long term (current) use of opiate analgesic; Z79.4 Long term (current) use of insulin; I10 Essential (primary) hypertension; Z79.899 Other long term (current) drug therapy
CPT/HCPCS: 36415; 80053; 82378; 83036; 84443; 85025; 99214

== ENCOUNTER → 2023-01-19 09:39 | Outpatient (BNVA) | payer MEDICARE, SELFPAY | PROVIDERS: PCP Family Medicine; Visit Provider Podiatrist Foot & Ankle Surgery | DX: E11.42 Type 2 diabetes mellitus with diabetic polyneuropathy (principal); Z79.4 Long term (current) use of insulin; M20.21 Hallux rigidus, right foot; M20.22 Hallux rigidus, left foot; M24.572 Contracture, left ankle; Z79.84 Long term (current) use of oral hypoglycemic drugs | CPT/HCPCS: 99214 ==

== ENCOUNTER 2023-08-16 13:13 | Oncology outpatient (recurring) (ONCR) | payer MEDICARE, SELFPAY ==
[2023-08-16 13:14] VITALS: BP 107/76; PULSE 112; RESP 16; TEMP 36.9; O2SAT 95
[2023-08-16 13:27] LABS: Basophils # 0.1 10^3/uL (0.0-0.1); Basophils % 0.7 %; Eosinophils # 0.3 10^3/uL (0.0-0.8); Eosinophils % 3.2 %; Hematocrit 47.3 % (37-53); Lymphocytes # 2.1 10^3/uL (0.8-4.8); Lymphocytes % 19.5 %; Mean Corpuscular HGB Conc 34.7 g/dL (30-55); Mean Corpuscular Hemoglobin 30.4 pg (27-33); Mean Corpuscular Volume 87.6 fl (82-101); Mean Platelet Volume 11.1 fL (7.4-10.4); Monocytes # 0.6 10^3/uL (0.2-0.9); Neutrophils # 7.45 10^3/uL (1.8-7.7); Neutrophils % 70.1 %; Nucleated Red Blood Cells % 0 %; Platelet Count 194 10^3/cmm (157-399); White Blood Count 10.62 10^3/uL (3.29-11.43)
[2023-08-16 13:59] LABS: Carcinoembryonic Antigen 2.2 ng/mL (0.0-4.7)
[2023-08-16 14:10] LABS: Alanine Aminotransferase 15 U/L (0-41); Albumin Level 4.6 g/dL (3.5-5.2); Alkaline Phosphatase 102 U/L (40-130); Anion Gap 16.4 (5-19); Aspartate Amino Transferase 15 U/L (0-40); Blood Urea Nitrogen 11 mg/dL (6-20); Calcium 9.4 mg/dL (8.5-10.5); Carbon Dioxide 24 mmol/L (22-29); Chloride 100 mmol/L (98-107); Globulin 2.4 g/dL (1.3-4.6); Glomerular Filtration Rate 119.4 mL/min (90-130); Glucose 192 mg/dL (65-115); Osmolality Calculated 287 mOsm/kg (285-295); Potassium 4.4 mmol/L (3.5-5.1); Sodium 136 mmol/L (136-145); Total Bilirubin 0.7 mg/dL (0.15-1.2)
== END 2023-08-20 23:59 | disposition home or self-care (01) ==
PROVIDERS: Nurse Practitioner Family; PCP Family Medicine; Visit Provider Internal Medicine Medical Oncology
DX: C20 Malignant neoplasm of rectum (principal); R53.0 Neoplastic (malignant) related fatigue; E11.42 Type 2 diabetes mellitus with diabetic polyneuropathy; M19.90 Unspecified osteoarthritis, unspecified site; Z79.4 Long term (current) use of insulin; Z87.891 Personal history of nicotine dependence; Z53.9 Procedure and treatment not carried out, unspecified reason
CPT/HCPCS: 36415; 80053; 82378; 85025; 99214

== ENCOUNTER → 2023-11-07 07:54 | Outpatient (BNVA) | payer MEDICARE, SELFPAY | PROVIDERS: PCP Family Medicine; Visit Provider Podiatrist Foot & Ankle Surgery | DX: E11.42 Type 2 diabetes mellitus with diabetic polyneuropathy (principal); Z79.4 Long term (current) use of insulin; M20.21 Hallux rigidus, right foot; M20.22 Hallux rigidus, left foot; M24.572 Contracture, left ankle; L60.3 Nail dystrophy; L84 Corns and callosities; Z79.84 Long term (current) use of oral hypoglycemic drugs | CPT/HCPCS: 11055; 11721 ==

== ENCOUNTER → 2024-03-13 08:35 | Outpatient (BNVA) | payer MEDICARE, SELFPAY | PROVIDERS: PCP Family Medicine; Visit Provider Podiatrist Foot & Ankle Surgery | DX: E11.42 Type 2 diabetes mellitus with diabetic polyneuropathy (principal); Z79.4 Long term (current) use of insulin; M20.21 Hallux rigidus, right foot; M20.22 Hallux rigidus, left foot; M24.572 Contracture, left ankle; L60.3 Nail dystrophy; L84 Corns and callosities; Z79.84 Long term (current) use of oral hypoglycemic drugs | CPT/HCPCS: 11055; 11721 ==

== ENCOUNTER 2024-09-04 11:27 | Oncology outpatient (recurring) (ONCR) | payer MEDICARE, SELFPAY ==
[2024-09-04 11:58] LABS: Basophils # 0.1 10^3/uL (0.0-0.1); Eosinophils # 0.2 10^3/uL (0.0-0.8); Eosinophils % 3.9 %; Hematocrit 46.5 % (37-53); Lymphocytes # 2.6 10^3/uL (0.8-4.8); Lymphocytes % 42.1 %; Mean Corpuscular HGB Conc 32.7 g/dL (30-55); Mean Corpuscular Hemoglobin 28.7 pg (27-33); Mean Corpuscular Volume 87.7 fl (82-101); Mean Platelet Volume 10.5 fL (7.4-10.4); Monocytes # 0.6 10^3/uL (0.2-0.9); Monocytes % 9.2 %; Neutrophils # 2.66 10^3/uL (1.8-7.7); Neutrophils % 43.5 %; Nucleated Red Blood Cells % 0 %; Platelet Count 189 10^3/cmm (157-399); Red Cell Distribution Width 12.1 % (12.1-15.1); White Blood Count 6.11 10^3/uL (3.29-11.43)
[2024-09-04 12:20] LABS: Carcinoembryonic Antigen 1.1 ng/mL (0.0-4.7)
[2024-09-04 12:34] LABS: Alanine Aminotransferase 17 U/L (0-41); Albumin Level 4.4 g/dL (3.5-5.2); Alkaline Phosphatase 104 U/L (40-130); Anion Gap 14.5 (5-19); Aspartate Amino Transferase 15 U/L (0-40); Blood Urea Nitrogen 12 mg/dL (6-20); Calcium 8.9 mg/dL (8.5-10.5); Carbon Dioxide 26 mmol/L (22-29); Chloride 101 mmol/L (98-107); Creatinine Clr Calc Pharmacy 139.8443; Globulin 2.2 g/dL (1.3-4.6); Glomerular Filtration Rate 101.9 mL/min (90-130); Glucose 115 mg/dL (65-115); Osmolality Calculated 285 mOsm/kg (285-295); Potassium 4.5 mmol/L (3.5-5.1); Sodium 137 mmol/L (136-145); Total Bilirubin 0.7 mg/dL (0.15-1.2); Total Protein 6.6 g/dL (6.6-8.7)
== END 2024-09-20 23:59 | disposition home or self-care (01) ==
PROVIDERS: Nurse Practitioner Family; PCP Family Medicine; Visit Provider Internal Medicine Medical Oncology
DX: C20 Malignant neoplasm of rectum (principal); E11.42 Type 2 diabetes mellitus with diabetic polyneuropathy; Z79.4 Long term (current) use of insulin; M19.90 Unspecified osteoarthritis, unspecified site; Z79.899 Other long term (current) drug therapy; Z92.3 Personal history of irradiation
CPT/HCPCS: 36415; 80053; 82378; 85025; 99214

== ENCOUNTER → 2025-08-20 09:49 | Outpatient (BNVA) | payer MEDICARE, SELFPAY | PROVIDERS: PCP Family Medicine; Visit Provider Podiatrist Foot & Ankle Surgery | DX: E11.621 Type 2 diabetes mellitus with foot ulcer (principal); L97.523 Non-pressure chronic ulcer of other part of left foot with necrosis of muscle; L84 Corns and callosities; E11.42 Type 2 diabetes mellitus with diabetic polyneuropathy; L60.3 Nail dystrophy; Z79.4 Long term (current) use of insulin; M20.21 Hallux rigidus, right foot; M20.22 Hallux rigidus, left foot; M24.572 Contracture, left ankle; L03.116 Cellulitis of left lower limb; Z79.84 Long term (current) use of oral hypoglycemic drugs | CPT/HCPCS: 11042; 11045; 73630; 87070; 87075; 87205; 99214 ==

== ENCOUNTER → 2025-09-02 09:58 | Outpatient (BNVA) | payer MEDICARE, SELFPAY | PROVIDERS: PCP Family Medicine; Visit Provider Podiatrist Foot & Ankle Surgery | DX: E11.42 Type 2 diabetes mellitus with diabetic polyneuropathy (principal); Z79.4 Long term (current) use of insulin; M20.21 Hallux rigidus, right foot; M20.22 Hallux rigidus, left foot; M24.572 Contracture, left ankle; L97.523 Non-pressure chronic ulcer of other part of left foot with necrosis of muscle; L03.116 Cellulitis of left lower limb; E11.621 Type 2 diabetes mellitus with foot ulcer; Z79.84 Long term (current) use of oral hypoglycemic drugs; Z79.85 Long-term (current) use of injectable non-insulin antidiabetic drugs | CPT/HCPCS: 99213 ==

== ENCOUNTER 2025-09-05 12:11 | Oncology outpatient (recurring) (ONCR) | payer MEDICARE, SELFPAY ==
[2025-09-05 12:26] LABS: Hematocrit 47.5 % (37-53); Hemoglobin 16.00 g/dL (11.27-16.99); Mean Corpuscular HGB Conc 33.7 g/dL (30-55); Mean Corpuscular Hemoglobin 29.4 pg (27-33); Mean Corpuscular Volume 87.3 fl (82-101); Nucleated Red Blood Cells % 0 %; Platelet Count 218 10^3/cmm (157-399); Red Blood Count 5.44 10^6/uL (3.85-5.65); White Blood Count 9.90 10^3/uL (3.29-11.43)
[2025-09-05 12:49] LABS: Carcinoembryonic Antigen 1.5 ng/mL (0.0-4.7)
[2025-09-05 13:00] LABS: Alanine Aminotransferase 17 U/L (0-41); Albumin Level 4.6 g/dL (3.5-5.2); Alkaline Phosphatase 99 U/L (40-130); Anion Gap 19.1 (5-19); Aspartate Amino Transferase 14 U/L (0-40); Blood Urea Nitrogen 12 mg/dL (6-20); Calcium 9.5 mg/dL (8.5-10.5); Carbon Dioxide 24 mmol/L (22-29); Chloride 100 mmol/L (98-107); Globulin 2.5 g/dL (1.3-4.6); Glucose 176 mg/dL (65-115); Osmolality Calculated 290 mOsm/kg (285-295); Potassium 5.1 mmol/L (3.5-5.1); Sodium 138 mmol/L (136-145); Total Protein 7.1 g/dL (6.6-8.7)
== END 2025-09-20 23:59 | disposition home or self-care (01) ==
PROVIDERS: Nurse Practitioner Family; PCP Family Medicine; Visit Provider Internal Medicine Medical Oncology
DX: Z08 Encounter for follow-up examination after completed treatment for malignant neoplasm (principal); Z85.048 Personal history of other malignant neoplasm of rectum, rectosigmoid junction, and anus; E11.42 Type 2 diabetes mellitus with diabetic polyneuropathy; M19.90 Unspecified osteoarthritis, unspecified site; F17.210 Nicotine dependence, cigarettes, uncomplicated; Z79.4 Long term (current) use of insulin; Z79.899 Other long term (current) drug therapy; Z92.3 Personal history of irradiation; Z92.21 Personal history of antineoplastic chemotherapy
CPT/HCPCS: 36415; 80053; 82378; 85025; 99213